=== PATIENT | male | born 1985 | race Two or more races ===

== ENCOUNTER 2020-08-14 15:16 | Inpatient (IN) | payer MEDICAID, OTHER ==
[~2020-08-14] VITALS: Ht 177.8 cm; Wt 115.0 kg
[2020-08-14] MEDS ORDERED: ACETAMINOPHEN 500 MG TAB PO ONE ×3 (15:23→16:45)
[2020-08-14 15:40] LABS: Basophils # (auto) 0 10 ^3/uL (0-0.2); Basophils % (auto) 0.3 % (0.0-2.0); Eosinophils # (auto) 0 10 ^3/uL (0-0.8); Hematocrit 43.8 % (41.0-53.0); Hemoglobin 15.5 g/dL (13.5-17.5); Lymphocytes % (auto) 14.5 % (10.0-50.0); Mean Corpuscular Hemoglobin 31.1 pg (28.0-32.0); Mean Corpuscular Hgb Conc. 35.5 g/dL (32.0-36.0); Mean Corpuscular Volume 87.7 fL (80.0-100.0); Monocytes # (auto) 0.6 10 ^3/uL (0-1.3); Monocytes % (auto) 9.2 % (0.0-12.0); Nucleated Red Blood Cells % 0.3 %; Red Blood Cells 4.99 10^6/uL (4.5-5.90); Red Cell Distribution Width 12.4 % (11.8-14.3); White Blood Cell 6.6 10^3/uL (4.4-10.8)
[2020-08-14 16:02] LABS: Albumin 3.8 g/dL (3.4-5.0); Calcium 8.7 mg/dL (8.5-10.1); Potassium 3.9 mmol/L (3.5-5.1)
[2020-08-14 16:05] LABS: BUN/Creatinine Ratio 8.8; Bilirubin, Total 0.6 mg/dL (0.2-1.0); Total Protein 8.4 g/dL (6.4-8.2)
[2020-08-14] MEDS ORDERED: cefTRIAXone 1GM/50ML D5W 50 ML IV ONE (17:30)
[2020-08-14] MEDS ORDERED: AZITHROMYCIN 500MG/ 250ML 250 ML IV ONE (17:30)
[2020-08-14] MEDS ORDERED: ASCORBIC ACID 500 MG TAB PO ONE (17:30)
[2020-08-14] MEDS ORDERED: CHOLECALCIFEROL (VITD3) 2,000 UNIT CAP/TAB PO ONE (17:30)
[2020-08-14] MEDS ORDERED: ZINC SULFATE 220mg CAP or TAB PO ONE (17:30)
[2020-08-14 19:47] LABS: Urine Bacteria NONE SEEN /hpf (None Seen); Urine Blood Negative /uL (Negative); Urine Specific Gravity 1.011 (1.001-1.035); Urine WBC 1 /hpf (0 - 3)
[2020-08-14] MEDS ORDERED: NITROGLYCERIN 0.4 MG SL TAB SL PRN (22:45)
[2020-08-14] MEDS ORDERED: DOCUSATE SOD 100 MG CAP PO PRN (22:45)
[2020-08-14] MEDS ORDERED: TEMAZEPAM 15 MG CAP PO PRN (22:45)
[2020-08-14] MEDS ORDERED: MORPHINE SULF INJ 2 MG/ML SYRINGE 1ML IV PRN (22:45)
[2020-08-14] MEDS: DexAMETHasone SOD PHOS 10MG/1ML VIAL INJ IV SCH (23:16)
[2020-08-14] MEDS: ENOXAPARIN SOD 40 MG/0.4 ML SYRINGE SC SCH (23:16)
[2020-08-14] MEDS: ACETAMINOPHEN 500 MG TAB PO PRN (23:18)
[2020-08-15] VITALS (7 sets, daily range): BP systolic 104–125; BP diastolic 53–92
[2020-08-15 05:58] LABS: Basophils # (auto) 0 10 ^3/uL (0-0.2); Basophils % (auto) 0.2 % (0.0-2.0); Eosinophils # (auto) 0 10 ^3/uL (0-0.8); Hematocrit 41.6 % (41.0-53.0); Hemoglobin 14.8 g/dL (13.5-17.5); Lymphocytes # (auto) 0.7 10 ^3/uL (0.4-5.4); Lymphocytes % (auto) 18.2 % (10.0-50.0); Mean Corpuscular Hemoglobin 31.5 pg (28.0-32.0); Mean Corpuscular Hgb Conc. 35.6 g/dL (32.0-36.0); Mean Corpuscular Volume 88.3 fL (80.0-100.0); Monocytes # (auto) 0.3 10 ^3/uL (0-1.3); Monocytes % (auto) 6.6 % (0.0-12.0); Neutrophils # (auto) 2.8 10 ^3/uL (1.6-8.6); Nucleated Red Blood Cells % 0.4 %; Red Blood Cells 4.71 10^6/uL (4.5-5.90); Red Cell Distribution Width 12.7 % (11.8-14.3); White Blood Cell 3.8 10^3/uL (4.4-10.8)
[2020-08-15 06:12] LABS: Potassium 4.5 mmol/L (3.5-5.1)
[2020-08-15 06:27] LABS: Albumin 3.4 g/dL (3.4-5.0); BUN/Creatinine Ratio 10.2; Bilirubin, Total 0.6 mg/dL (0.2-1.0); Calcium 8.4 mg/dL (8.5-10.1); Total Protein 8.1 g/dL (6.4-8.2)
[2020-08-15] MEDS: SODIUM CHLOR 0.9% PF (SALINE LOCK) 10ML VIAL/SYR IV SCH ×3 (06:36→23:13)
[2020-08-15] MEDS: cefTRIAXone 1GM/50ML D5W 50 ML IV SCH (09:15)
[2020-08-15] MEDS: DexAMETHasone SOD PHOS 10MG/1ML VIAL INJ IV SCH (10:53)
[2020-08-15] MEDS: CHOLECALCIFEROL (VITD3) 2,000 UNIT CAP/TAB PO SCH (10:54)
[2020-08-15] MEDS: MULTIPLE VITAMIN TAB PO SCH (10:54)
[2020-08-15] MEDS: AZITHROMYCIN 500MG/ 250ML 250 ML IV SCH (10:54)
[2020-08-15] MEDS: ZINC SULFATE 220mg CAP or TAB PO SCH (10:54)
[2020-08-15] MEDS: ASCORBIC ACID 1,000 MG TAB PO SCH (10:54)
[2020-08-15] MEDS: ENOXAPARIN SOD 40 MG/0.4 ML SYRINGE SC SCH ×2 (10:54→23:14)
[2020-08-15] MEDS: guaiFENesin 200 MG/10 ML UD GT PRN ×2 (16:00→23:15)
[2020-08-15] MEDS: IPRATROPIUM BROMIDE HFA AER IN SCH ×2 (19:20→22:37)
[2020-08-15] MEDS: BUDESONIDE (INHALATION) 180 MCG IH IN SCH (19:20)
[2020-08-15] MEDS: ALBUTEROL SULF HFA 90MCG INH 200DOSE IN PRN (19:20)
[2020-08-16] MEDS: guaiFENesin 200 MG/10 ML UD GT PRN ×3 (03:02→17:16)
[2020-08-16] MEDS: ACETAMINOPHEN 500 MG TAB PO PRN ×2 (03:02→12:43)
[2020-08-16] MEDS ORDERED: MORPHINE SULF INJ 2 MG/ML SYRINGE 1ML IV PRN (03:30)
[2020-08-16 05:19] VITALS: BP 111/64
[2020-08-16] MEDS: SODIUM CHLOR 0.9% PF (SALINE LOCK) 10ML VIAL/SYR IV SCH ×3 (06:22→22:22)
[2020-08-16] MEDS: BUDESONIDE (INHALATION) 180 MCG IH IN SCH ×2 (07:11→19:23)
[2020-08-16] MEDS: IPRATROPIUM BROMIDE HFA AER IN SCH ×4 (07:11→22:27)
[2020-08-16] MEDS: ALBUTEROL SULF HFA 90MCG INH 200DOSE IN PRN ×2 (07:12→22:27)
[2020-08-16 09:00] VITALS: BP 111/67
[2020-08-16 12:00] VITALS: BP 125/76
[2020-08-16] MEDS: AZITHROMYCIN 500MG/ 250ML 250 ML IV SCH (12:04)
[2020-08-16] MEDS: cefTRIAXone 1GM/50ML D5W 50 ML IV SCH (12:04)
[2020-08-16] MEDS: ZINC SULFATE 220mg CAP or TAB PO SCH (12:13)
[2020-08-16] MEDS: MULTIPLE VITAMIN TAB PO SCH (12:13)
[2020-08-16] MEDS: DexAMETHasone SOD PHOS 10MG/1ML VIAL INJ IV SCH (12:14)
[2020-08-16] MEDS: CHOLECALCIFEROL (VITD3) 2,000 UNIT CAP/TAB PO SCH (12:14)
[2020-08-16] MEDS: ASCORBIC ACID 1,000 MG TAB PO SCH (12:14)
[2020-08-16] MEDS: ONDANSETRON HCL 4 MG/2 ML VIAL IV PRN ×3 (12:15→20:33)
[2020-08-16] MEDS: HYDROcodone-ACET 5/325MG TAB PO PRN ×3 (12:16→20:34)
[2020-08-16] MEDS: ENOXAPARIN SOD 40 MG/0.4 ML SYRINGE SC SCH ×2 (12:42→22:22)
[2020-08-16 13:00] VITALS: BP 125/76
[2020-08-16 15:31] LABS: BUN/Creatinine Ratio 12.7; Calcium 9.2 mg/dL (8.5-10.1); Magnesium 2.5 mg/dL (1.6-2.6); Potassium 4.3 mmol/L (3.5-5.1)
[2020-08-16 17:00] VITALS: BP 118/74
[2020-08-16] MEDS ORDERED: REMDESIVIR PER PHARMACY 0 ML IV SCH (19:00)
[2020-08-16] MEDS ORDERED: REMDESIVIR 200 MG in NS 210ml LOADING DOSE ADULT IV ONE (21:30)
[2020-08-16 21:31] LABS: Albumin 3.3 g/dL (3.4-5.0); Bilirubin, Direct 0.1 mg/dL (0-0.2)
[2020-08-16 21:34] LABS: Bilirubin, Total 0.5 mg/dL (0.2-1.0)
[2020-08-16 22:00] VITALS: BP 104/73
[2020-08-17] MEDS: guaiFENesin 200 MG/10 ML UD GT PRN ×2 (01:47→10:53)
[2020-08-17 05:00] VITALS: BP 104/61
[2020-08-17] MEDS: SODIUM CHLOR 0.9% PF (SALINE LOCK) 10ML VIAL/SYR IV SCH ×3 (05:06→22:07)
[2020-08-17 07:41] LABS: Albumin 3.1 g/dL (3.4-5.0); BUN/Creatinine Ratio 19.5; Calcium 8.8 mg/dL (8.5-10.1); Potassium 3.8 mmol/L (3.5-5.1)
[2020-08-17 07:43] LABS: Bilirubin, Total 0.5 mg/dL (0.2-1.0); Total Protein 7.6 g/dL (6.4-8.2)
[2020-08-17 09:00] VITALS: BP 109/62
[2020-08-17] MEDS: IPRATROPIUM BROMIDE HFA AER IN SCH ×4 (09:03→22:31)
[2020-08-17] MEDS: BUDESONIDE (INHALATION) 180 MCG IH IN SCH ×2 (09:04→19:20)
[2020-08-17] MEDS: cefTRIAXone 1GM/50ML D5W 50 ML IV SCH (10:49)
[2020-08-17] MEDS: MULTIPLE VITAMIN TAB PO SCH (10:50)
[2020-08-17] MEDS: ASCORBIC ACID 1,000 MG TAB PO SCH (10:50)
[2020-08-17] MEDS: CHOLECALCIFEROL (VITD3) 2,000 UNIT CAP/TAB PO SCH (10:51)
[2020-08-17] MEDS: ENOXAPARIN SOD 40 MG/0.4 ML SYRINGE SC SCH ×2 (10:51→22:08)
[2020-08-17] MEDS: ZINC SULFATE 220mg CAP or TAB PO SCH (10:52)
[2020-08-17] MEDS: DexAMETHasone SOD PHOS 10MG/1ML VIAL INJ IV SCH (10:52)
[2020-08-17] MEDS: AZITHROMYCIN 500MG/ 250ML 250 ML IV SCH ×2 (12:50→13:18)
[2020-08-17 13:00] VITALS: BP 106/61
[2020-08-17] MEDS ORDERED: ZOLPIDEM TARTRATE 5 MG TAB PO PRN (13:15)
[2020-08-17] MEDS: REMDESIVIR 100mg 100 MG in SODIUM CHL 0.9% 230 ML IV SCH (16:51)
[2020-08-17 16:54] VITALS: BP 113/81
[2020-08-17] MEDS: ALBUTEROL SULF HFA 90MCG INH 200DOSE IN PRN (19:20)
[2020-08-17 20:59] VITALS: BP 113/81
[2020-08-17 22:00] VITALS: BP 102/74
[2020-08-18] MEDS: guaiFENesin 200 MG/10 ML UD GT PRN (02:43)
[2020-08-18] MEDS: ALBUTEROL SULF HFA 90MCG INH 200DOSE IN PRN ×4 (03:02→22:39)
[2020-08-18 05:11] VITALS: BP 115/73
[2020-08-18] MEDS: SODIUM CHLOR 0.9% PF (SALINE LOCK) 10ML VIAL/SYR IV SCH ×3 (06:28→21:42)
[2020-08-18] MEDS: IPRATROPIUM BROMIDE HFA AER IN SCH ×4 (06:45→22:37)
[2020-08-18] MEDS: BUDESONIDE (INHALATION) 180 MCG IH IN SCH ×2 (06:46→18:35)
[2020-08-18 07:16] LABS: Basophils # (auto) 0 10 ^3/uL (0-0.2); Basophils % (auto) 0.2 % (0.0-2.0); Eosinophils # (auto) 0 10 ^3/uL (0-0.8); Eosinophils % (auto) 0.2 % (0.0-7.0); Hematocrit 40.1 % (41.0-53.0); Hemoglobin 14.4 g/dL (13.5-17.5); Lymphocytes # (auto) 1.3 10 ^3/uL (0.4-5.4); Mean Corpuscular Hemoglobin 31.6 pg (28.0-32.0); Mean Corpuscular Hgb Conc. 35.8 g/dL (32.0-36.0); Mean Corpuscular Volume 88.2 fL (80.0-100.0); Monocytes # (auto) 0.8 10 ^3/uL (0-1.3); Neutrophils # (auto) 4.1 10 ^3/uL (1.6-8.6); Neutrophils % (auto) 65.6 % (37.0-80.0); Nucleated Red Blood Cells % 0.5 %; Red Blood Cells 4.55 10^6/uL (4.5-5.90); Red Cell Distribution Width 12.6 % (11.8-14.3); White Blood Cell 6.3 10^3/uL (4.4-10.8)
[2020-08-18 07:38] LABS: Calcium 9.2 mg/dL (8.5-10.1); Potassium 4.6 mmol/L (3.5-5.1)
[2020-08-18 07:44] LABS: Albumin 3.3 g/dL (3.4-5.0); BUN/Creatinine Ratio 19.8; Bilirubin, Total 0.5 mg/dL (0.2-1.0); Total Protein 7.9 g/dL (6.4-8.2)
[2020-08-18 08:30] VITALS: BP 101/65
[2020-08-18] MEDS: cefTRIAXone 1GM/50ML D5W 50 ML IV SCH (10:39)
[2020-08-18] MEDS: MULTIPLE VITAMIN TAB PO SCH (10:40)
[2020-08-18] MEDS: CHOLECALCIFEROL (VITD3) 2,000 UNIT CAP/TAB PO SCH (10:40)
[2020-08-18] MEDS: DexAMETHasone SOD PHOS 10MG/1ML VIAL INJ IV SCH (10:40)
[2020-08-18] MEDS: ZINC SULFATE 220mg CAP or TAB PO SCH (10:40)
[2020-08-18] MEDS: ASCORBIC ACID 1,000 MG TAB PO SCH (10:40)
[2020-08-18] MEDS: ENOXAPARIN SOD 40 MG/0.4 ML SYRINGE SC SCH ×2 (10:41→21:43)
[2020-08-18] MEDS: AZITHROMYCIN 500MG/ 250ML 250 ML IV SCH (12:14)
[2020-08-18 12:30] VITALS: BP 114/75
[2020-08-18] MEDS: REMDESIVIR 100mg 100 MG in SODIUM CHL 0.9% 230 ML IV SCH (16:12)
[2020-08-18 22:00] VITALS: BP 127/69
[2020-08-19 05:00] VITALS: BP 102/68
[2020-08-19] MEDS: SODIUM CHLOR 0.9% PF (SALINE LOCK) 10ML VIAL/SYR IV SCH ×3 (06:00→21:43)
[2020-08-19] MEDS: BUDESONIDE (INHALATION) 180 MCG IH IN SCH ×2 (07:41→18:54)
[2020-08-19] MEDS: IPRATROPIUM BROMIDE HFA AER IN SCH ×4 (07:42→22:20)
[2020-08-19] MEDS: ALBUTEROL SULF HFA 90MCG INH 200DOSE IN PRN ×2 (07:42→18:54)
[2020-08-19 08:30] VITALS: BP 112/70
[2020-08-19] MEDS: cefTRIAXone 1GM/50ML D5W 50 ML IV SCH (09:00)
[2020-08-19] MEDS: MULTIPLE VITAMIN TAB PO SCH (10:00)
[2020-08-19] MEDS: ZINC SULFATE 220mg CAP or TAB PO SCH (10:00)
[2020-08-19] MEDS: AZITHROMYCIN 500MG/ 250ML 250 ML IV SCH (10:00)
[2020-08-19] MEDS: DexAMETHasone SOD PHOS 10MG/1ML VIAL INJ IV SCH (10:11)
[2020-08-19] MEDS: ASCORBIC ACID 1,000 MG TAB PO SCH (10:12)
[2020-08-19] MEDS: CHOLECALCIFEROL (VITD3) 2,000 UNIT CAP/TAB PO SCH (10:12)
[2020-08-19] MEDS: ENOXAPARIN SOD 40 MG/0.4 ML SYRINGE SC SCH ×2 (11:23→21:43)
[2020-08-19 12:30] VITALS: BP 115/72
[2020-08-19] MEDS: REMDESIVIR 100mg 100 MG in SODIUM CHL 0.9% 230 ML IV SCH (15:00)
[2020-08-19 17:00] VITALS: BP 103/51
[2020-08-19 22:00] VITALS: BP 106/62
[2020-08-20 05:00] VITALS: BP 102/70
[2020-08-20] MEDS: SODIUM CHLOR 0.9% PF (SALINE LOCK) 10ML VIAL/SYR IV SCH ×2 (05:51→14:00)
[2020-08-20 07:33] LABS: Albumin 3.2 g/dL (3.4-5.0); Potassium 4.8 mmol/L (3.5-5.1)
[2020-08-20 07:38] LABS: BUN/Creatinine Ratio 20.5; Bilirubin, Total 0.5 mg/dL (0.2-1.0); Total Protein 7.3 g/dL (6.4-8.2)
[2020-08-20] MEDS: BUDESONIDE (INHALATION) 180 MCG IH IN SCH (07:57)
[2020-08-20] MEDS: IPRATROPIUM BROMIDE HFA AER IN SCH ×2 (07:57→12:49)
[2020-08-20] MEDS: ALBUTEROL SULF HFA 90MCG INH 200DOSE IN PRN (07:58)
[2020-08-20 09:00] VITALS: BP 116/20
[2020-08-20] MEDS: cefTRIAXone 1GM/50ML D5W 50 ML IV SCH (09:00)
[2020-08-20] MEDS: MULTIPLE VITAMIN TAB PO SCH (10:00)
[2020-08-20] MEDS: DexAMETHasone SOD PHOS 10MG/1ML VIAL INJ IV SCH (10:00)
[2020-08-20] MEDS: CHOLECALCIFEROL (VITD3) 2,000 UNIT CAP/TAB PO SCH (10:00)
[2020-08-20] MEDS: ENOXAPARIN SOD 40 MG/0.4 ML SYRINGE SC SCH (10:19)
[2020-08-20] MEDS: ZINC SULFATE 220mg CAP or TAB PO SCH (10:21)
[2020-08-20] MEDS: ASCORBIC ACID 1,000 MG TAB PO SCH (10:21)
[2020-08-20 13:00] VITALS: BP 99/71
[2020-08-20] MEDS: REMDESIVIR 100mg 100 MG in SODIUM CHL 0.9% 230 ML IV SCH (16:23)
[2020-08-20 17:37] VITALS: BP 109/62
== END 2020-08-20 17:35 | disposition home or self-care (01) | DRG 137 ==
LOC: ER 15:16 → TELE-EAST 22:31
PROVIDERS: ADMIT Nurse Practitioner Family; ATTEND Internal Medicine
PROC: XW033E5 Introduction of Remdesivir Anti-infective into Peripheral Vein, Percutaneous Approach, New Technology Group 5 (ICD-10-PCS; principal; 2020-08-16)
DX: U07.1 COVID-19 (principal); J96.01 Acute respiratory failure with hypoxia; J12.82 Pneumonia due to coronavirus disease 2019; E87.1 Hypo-osmolality and hyponatremia; T50.B95A Adverse effect of other viral vaccines, initial encounter; R73.9 Hyperglycemia, unspecified; R50.9 Fever, unspecified; J98.11 Atelectasis; R74.8 Abnormal levels of other serum enzymes; D72.819 Decreased white blood cell count, unspecified; E66.01 Morbid (severe) obesity due to excess calories; Z71.3 Dietary counseling and surveillance; Z68.37 Body mass index [BMI] 37.0-37.9, adult
CPT/HCPCS: 36415; 71045; 80048; 80053; 80076; 81001; 82306; 82728; 83036; 83605; 83615; 83735; 85025; 85379; 86141; 87040; 87426; 93005; 94640; 96365; 96366; 96368; G0378; J0696; J1100; J2405

== ENCOUNTER 2022-11-05 13:57 | Emergency (ER) | payer MEDICAID ==
[~2022-11-05] VITALS: Ht 180.3 cm; Wt 117.1 kg
[2022-11-05 15:11] LABS: Basophils # (auto) 0.1 10 ^3/uL (0-0.2); Basophils % (auto) 0.9 % (0.0-2.0); Eosinophils # (auto) 0.2 10 ^3/uL (0-0.8); Eosinophils % (auto) 2.8 % (0.0-7.0); Hematocrit 44.5 % (41.0-53.0); Hemoglobin 15.5 g/dL (13.5-17.5); Lymphocytes # (auto) 2.2 10 ^3/uL (0.4-5.4); Lymphocytes % (auto) 34.5 % (10.0-50.0); Mean Corpuscular Hemoglobin 30.2 pg (28.0-32.0); Mean Corpuscular Hgb Conc. 34.8 g/dL (32.0-36.0); Mean Corpuscular Volume 86.8 fL (80.0-100.0); Monocytes # (auto) 0.7 10 ^3/uL (0-1.3); Monocytes % (auto) 11.5 % (0.0-12.0); Neutrophils # (auto) 3.2 10 ^3/uL (1.6-8.6); Neutrophils % (auto) 50.3 % (37.0-80.0); Nucleated Red Blood Cells % 0.1 %; Red Blood Cells 5.13 10^6/uL (4.5-5.90); White Blood Cell 6.3 10^3/uL (4.4-10.8)
[2022-11-05 15:44] LABS: Alanine Aminotransferase 78 U/L (7-40); Albumin 4.6 g/dL (3.2-4.8); Alkaline Phosphatase 115 U/L (46-116); Anion Gap 6.5 (5-15); Aspartate Aminotransferase 29 U/L (13-40); BUN/Creatinine Ratio 9.5 (10.0-20.0); Blood Urea Nitrogen 13 mg/dL (9-23); Calcium 9.6 mg/dL (8.5-10.1); Carbon Dioxide 29.5 mmol/L (20-30); Chloride 103 mmol/L (98-107); Glucose 91 mg/dL (74-106); Potassium 4.1 mmol/L (3.5-5.1); Sodium 139 mmol/L (136-145)
[2022-11-05 15:45] LABS: Total Protein 7.3 g/dL (5.7-8.2)
[2022-11-05] MEDS ORDERED: MECLIZINE HCL 25 MG TAB PO ONE (20:45)
[2022-11-05 21:44] LABS: COVID19 ANTIGEN SOFIA FIA NEGATIVE (NEGATIVE)
[2022-11-05] MEDS ORDERED: MECL1TAB31 PO (22:59)
[2022-11-05 23:18] VITALS: BP 119/77; PULSE 69; RESP 16; TEMP 98; O2SAT 97
== END 2022-11-05 23:29 | disposition home or self-care (01) ==
LOC: ER 13:57
DX: R42 Dizziness and giddiness (principal); R94.4 Abnormal results of kidney function studies; R74.01 Elevation of levels of liver transaminase levels; Z79.899 Other long term (current) drug therapy
CPT/HCPCS: 36415; 70450; 71046; 80053; 82962; 85025; 87426; 93005; 99285; J8597

== ENCOUNTER 2023-10-06 13:57 | Emergency (ER) | payer MEDICAID, OTHER ==
[~2023-10-06] VITALS: Ht 177.8 cm; Wt 119.3 kg
[2023-10-06] MEDS: VANCOMYCIN 1GM/200ML 200 ML IV ONE (15:37)
[2023-10-06] MEDS: SODIUM CHLORIDE 0.9% 1,000 ML IV ONE (15:37)
[2023-10-06 15:40] LABS: Basophils # (auto) 0.1 10 ^3/uL (0-0.2); Basophils % (auto) 0.6 % (0.0-2.0); Eosinophils # (auto) 0.3 10 ^3/uL (0-0.8); Hematocrit 43.3 % (41.0-53.0); Hemoglobin 14.8 g/dL (13.5-17.5); Lymphocytes # (auto) 1.6 10 ^3/uL (0.4-5.4); Lymphocytes % (auto) 14.7 % (10.0-50.0); Mean Corpuscular Hemoglobin 30.5 pg (28.0-32.0); Mean Corpuscular Hgb Conc. 34.2 g/dL (32.0-36.0); Mean Corpuscular Volume 89.2 fL (80.0-100.0); Monocytes # (auto) 1.3 10 ^3/uL (0-1.3); Monocytes % (auto) 12.4 % (0.0-12.0); Neutrophils # (auto) 7.4 10 ^3/uL (1.6-8.6); Neutrophils % (auto) 69.3 % (37.0-80.0); Red Blood Cells 4.86 10^6/uL (4.5-5.90); White Blood Cell 10.6 10^3/uL (4.4-10.8)
[2023-10-06 15:44] VITALS: BP 135/81; TEMP 99.7
[2023-10-06 16:05] LABS: Chloride 105 mmol/L (98-107); Potassium 4.1 mmol/L (3.5-5.1); Sodium 138 mmol/L (136-145)
[2023-10-06 16:06] LABS: Anion Gap 7 (5-15); Calcium 9.5 mg/dL (8.7-10.4); Carbon Dioxide 26 mmol/L (20-30)
[2023-10-06 16:09] VITALS: PULSE 114; RESP 17; O2SAT 94
[2023-10-06 16:11] LABS: BUN/Creatinine Ratio 7.2 (10.0-20.0); Blood Urea Nitrogen 8 mg/dL (9-23)
[2023-10-06 16:12] LABS: Glucose 125 mg/dL (74-106)
[2023-10-06] MEDS ORDERED: BACDST PO (16:29)
== END 2023-10-06 16:52 | disposition home or self-care (01) ==
LOC: ER 13:57
DX: L03.115 Cellulitis of right lower limb (principal); M79.661 Pain in right lower leg
CPT/HCPCS: 36415; 80048; 85025; 87040; 96365; 99284; J3370; J7030